=== PATIENT | female | born 1985 | race Caucasian/White ===

== ENCOUNTER → 2016-12-30 | Outpatient (CLI) | payer OTHER ==
[~2016-12-30] MED LIST: ABILIFY20 MG PO; ADDERALL10 MG PO; ATIVAN 0.50.5 MG/TAB PO; BELVIQ PO; FOLIC ACID 11 MG/TA1 PO; GENTLE EXPRESSI1 CRE TP; LAMICTAL150 MG PO; LAMICTAL200 MG PO; LEXAPRO 10MG10 MG PO; LORTAB 5/500 501 TAB PO; MOTRIN 800800 MG/TAB PO; PERCOCET 325 MG1 TA2 PO; SENOKOT S 50 MG1 TAB PO; SEROQUEL 200MG200 MG PO; SEROQUEL300 MG PO
== END ==
LOC: BHSO 14:29
DX: F31.73 Bipolar disorder, in partial remission, most recent episode manic (principal)

== ENCOUNTER → 2017-05-22 | Outpatient (CLI) | payer OTHER | LOC: BHSO 09:45 | DX: F31.73 Bipolar disorder, in partial remission, most recent episode manic (principal) ==

== ENCOUNTER → 2019-02-18 | Outpatient (CLI) | payer OTHER | LOC: BHSO 09:00 | DX: F31.81 Bipolar II disorder (principal) | CPT/HCPCS: G0463 ==

== ENCOUNTER → 2019-03-14 | Outpatient (CLI) | payer OTHER | LOC: BHSO 08:59 | DX: F31.81 Bipolar II disorder (principal) | CPT/HCPCS: G0463 ==

== ENCOUNTER → 2019-03-28 | Outpatient (CLI) | payer OTHER | LOC: BHSO 13:35 | DX: F31.81 Bipolar II disorder (principal) | CPT/HCPCS: G0463 ==

== ENCOUNTER → 2019-05-09 | Outpatient (CLI) | payer OTHER | LOC: BHSO 10:02 | DX: F31.81 Bipolar II disorder (principal) | CPT/HCPCS: G0463 ==

== ENCOUNTER → 2019-05-23 | Outpatient (CLI) | payer OTHER | LOC: BHSO 13:01 | DX: F31.81 Bipolar II disorder (principal) ==

== ENCOUNTER 2019-08-27 17:38 | Emergency (ER) | payer OTHER ==
[~2019-08-27] VITALS: Ht 167.6 cm; Wt 89.5 kg
[2019-08-27 17:48] VITALS: TEMP 97.7
[2019-08-27 18:34] LABS: COLLECTION METHOD CLEAN CATCH
[2019-08-27 18:38] LABS: BASO % 0.4 % (0.0-2.0); EOS # 0.1 (0.0-0.7); EOS % 1.1 % (0-4.0); GRAN # 3.3 (1.4-6.5); GRAN % 45.2 % (42.2-75.2); HEMATOCRIT 43.9 % (37.0-47.0); HEMOGLOBIN 14.5 g/dl (12.5-16.0); LYMPH # 2.9 (1.2-3.4); LYMPH % 40.1 % (20.0-51.0); MEAN CELL VOLUME 85 fl (80.0-100.0); MEAN CORPUSCULAR HEMOGLOBIN 28 pg (27.0-31.0); MEAN CORPUSCULAR HGB CONC 33 g/dl (33.0-37.0); MEAN PLATELET VOLUME 9.2 fl (7.4-10.4); MONO # 0.9 (0.1-0.6); MONO % 12.8 % (1.7-9.3); PLATELET COUNT 315 K/mm3 (130-400); RED BLOOD COUNT 5.17 M/mm3 (4.10-5.30); REDCELL DISTRIBUTION WIDTH-CV 13.2 % (11.5-14.5)
[2019-08-27 18:48] LABS: PH 6 (5-8); SQUAMOUS EPITHELIAL None Seen /hpf; URINE APPEARANCE Clear; URINE BACTERIA None Seen /hpf; URINE BILIRUBIN Negative (NEGATIVE); URINE BLOOD 1+ (NEGATIVE); URINE COLOR Straw; URINE GLUCOSE Negative (NEGATIVE); URINE KETONE Negative (NEGATIVE); URINE LEUKOCYTE ESTERASE Negative (NEGATIVE); URINE NITRATE Negative (NEGATIVE); URINE PROTEIN(semi-quant) Negative (NEGATIVE); URINE RBC 0-2 /hpf; URINE UROBILINOGEN Negative (NEGATIVE)
[2019-08-27 18:58] LABS: BILIRUBIN,TOTAL 0.6 mg/dL (0.0-1.0); C-REACTIVE PROTEIN 1.4 mg/dL (0.0-0.9); CALCIUM 9.7 mg/dL (8.4-10.2); CREATININE, serum 0.88 (0.52-1.25); POTASSIUM 3.9 mmol/L (3.4-5.0); TOTAL PROTEIN 8.9 gm/dL (6.4-8.2)
[2019-08-27 20:52] VITALS: BP 116/78; PULSE 68
== END 2019-08-27 20:54 | disposition home or self-care (01) ==
LOC: COL.ER 17:38
PROVIDERS: Emergency Medicine
DX: R10.9 Unspecified abdominal pain (principal); F31.9 Bipolar disorder, unspecified; Z90.710 Acquired absence of both cervix and uterus
CPT/HCPCS: J1885; J2405; J7030; Q9967

== ENCOUNTER → 2019-10-11 | Outpatient (CLI) | payer OTHER | LOC: BHSO 10:23 | DX: F31.81 Bipolar II disorder (principal) | CPT/HCPCS: G0463 ==

== ENCOUNTER → 2019-10-12 | Outpatient (CLI) | payer OTHER | LOC: BHSO 13:00 | DX: F31.81 Bipolar II disorder (principal) ==

== ENCOUNTER → 2019-10-19 | Outpatient (CLI) | payer OTHER | LOC: BHSO 09:00 | DX: F31.81 Bipolar II disorder (principal) ==

== ENCOUNTER → 2019-10-27 | Outpatient (CLI) | payer OTHER | LOC: BHSO 11:00 | DX: F31.81 Bipolar II disorder (principal) ==

== ENCOUNTER → 2019-11-10 | Outpatient (CLI) | payer OTHER | LOC: BHSO 11:40 | DX: F31.81 Bipolar II disorder (principal) | CPT/HCPCS: G0463 ==

== ENCOUNTER → 2019-11-16 | Outpatient (CLI) | payer OTHER | LOC: BHSO 11:00 | DX: F31.81 Bipolar II disorder (principal) ==

== ENCOUNTER → 2019-12-07 | Outpatient (CLI) | payer OTHER | LOC: BHSO 13:27 | DX: F41.1 Generalized anxiety disorder (principal) | CPT/HCPCS: G0463 ==

== ENCOUNTER → 2019-12-12 | Outpatient (CLI) | payer OTHER | LOC: BHSO 09:59 | DX: F31.81 Bipolar II disorder (principal) ==

== ENCOUNTER → 2019-12-26 | Outpatient (CLI) | payer OTHER | LOC: BHSO 10:04 | DX: F31.81 Bipolar II disorder (principal) ==

== ENCOUNTER → 2020-01-11 | Outpatient (CLI) | payer OTHER | LOC: BHSO 13:03 | DX: F31.81 Bipolar II disorder (principal) ==

== ENCOUNTER → 2020-01-16 | Outpatient (CLI) | payer OTHER | LOC: BHSO 13:15 | DX: F31.81 Bipolar II disorder (principal) | CPT/HCPCS: G0463 ==

== ENCOUNTER → 2020-01-30 | Outpatient (CLI) | payer OTHER | LOC: BHSO 11:02 | DX: F31.81 Bipolar II disorder (principal) ==

== ENCOUNTER → 2020-02-06 | Outpatient (CLI) | payer OTHER | LOC: BHSO 15:02 | DX: F31.81 Bipolar II disorder (principal) ==

== ENCOUNTER → 2020-02-13 | Outpatient (CLI) | payer OTHER | LOC: BHSO 14:02 | DX: F31.81 Bipolar II disorder (principal) ==

== ENCOUNTER → 2020-02-15 | Outpatient (CLI) | payer OTHER | LOC: BHSO 10:38 | DX: F31.81 Bipolar II disorder (principal) | CPT/HCPCS: G0463 ==

== ENCOUNTER → 2020-02-20 | Outpatient (CLI) | payer OTHER | LOC: BHSO 14:03 | DX: F31.81 Bipolar II disorder (principal) ==

== ENCOUNTER → 2020-03-05 | Outpatient (CLI) | payer OTHER | LOC: BHSO 13:50 | DX: F31.81 Bipolar II disorder (principal) ==

== ENCOUNTER → 2020-03-12 | Outpatient (CLI) | payer OTHER | LOC: BHSO 13:15 | DX: F31.81 Bipolar II disorder (principal) ==

== ENCOUNTER → 2020-03-28 | Outpatient (CLI) | payer OTHER | LOC: BHSO 09:38 | DX: F31.76 Bipolar disorder, in full remission, most recent episode depressed (principal) | CPT/HCPCS: G0463 ==

== ENCOUNTER → 2020-03-29 | Outpatient (CLI) | payer OTHER | LOC: BHSO 09:06 | DX: F31.81 Bipolar II disorder (principal) ==

== ENCOUNTER → 2020-04-04 | Outpatient (CLI) | payer OTHER | LOC: BHSO 09:00 | DX: F31.81 Bipolar II disorder (principal) ==

== ENCOUNTER → 2020-04-25 | Outpatient (CLI) | payer OTHER | LOC: BHSO 14:58 | DX: F31.81 Bipolar II disorder (principal) ==